=== PATIENT | female | born 1985 | race Two or more races ===

== ENCOUNTER 2019-03-22 17:10 | Emergency (ER) | payer OTHER ==
[~2019-03-22] VITALS: Ht 157.5 cm; Wt 57.2 kg
[2019-03-22] MEDS ORDERED: COLD & FLU SEV1 EACH (17:45)
[2019-03-22] MEDS ORDERED: ZYRTEC10 M3 (17:46)
[2019-03-22] MEDS ORDERED: ADVAIR HFA 115/12 GM (17:46)
== END 2019-03-22 20:27 | disposition home or self-care (01) ==
LOC: ER 17:10
DX: H65.192 Other acute nonsuppurative otitis media, left ear (principal); J15.7 Pneumonia due to Mycoplasma pneumoniae